=== PATIENT | male | born 1975 | race Caucasian/White ===

== ENCOUNTER 2017-09-08 02:18 | Emergency (ER) | payer OTHER ==
[~2017-09-08] VITALS: Ht 170.2 cm; Wt 93.2 kg
[~2017-09-08 02:18] MED LIST: ATIVAN0.5 MG PO; COGENTIN1 MG PO; COMBIVENT INH14.7 GM IH; CORRECTIVE LAXAT5 M1 PR; DEPAKOTE500 MG PO; ESKALITH300 M1 PO; FLONASE16 G1 BOTH NARES; GEODON40 MG PO; MUCUS RELIEF600 MG PO; NAPROSYN500 MG PO; TRAZODONE HCL50 MG PO; ZITHROMAX250 MG PO; ZOFRAN ODT4 MG PO; ZYPREXA
[2017-09-08 02:53] LABS: HEMATOCRIT 39.8 % (38.0-50.0); HEMOGLOBIN 12.8 G/DL (12.5-16.6); MCH 32.2 PG (29.0-34.0); MCHC 32.2 G/DL (30.0-36.0); MCV 100.3 FL (86-99); PLATELET COUNT 179 K/uL (156-360); RBC DIS.WIDTH-CV 12.9 % (11.8-14.6); RBC DIS.WIDTH-SD 48.4 % (39-53); RED BLOOD COUNT 3.97 M/uL (4.00-5.50); WHITE BLOOD COUNT 9.7 K/uL (4.1-10.2)
[2017-09-08 03:02] LABS: ALBUMIN 4.5 g/dL (3.2-4.8); CHLORIDE 110 mEq/L (99-109); POTASSIUM 3.9 mEq/L (3.7-5.4); SODIUM 143 mEq/L (136-147)
[2017-09-08 03:05] LABS: GLUCOSE 111 mg/dL (70-99); TOTAL PROTEIN 6.4 g/dL (6.4-8.3)
[2017-09-08 03:07] LABS: TOTAL BILIRUBIN 0.4 mg/dL (0.0-1.0)
[2017-09-08 03:08] LABS: ALKALINE PHOSPHATASE 55 IU/L (3-129); SERUM ETHYL ALCOHOL 277 mg/dL
[2017-09-08 03:09] LABS: CREATININE 1.1 mg/dL (0.6-1.3); GFR ESTIMATE (CALCULATED) > 59 mL/min/ (58.99-99999)
[2017-09-08 03:10] LABS: AST (GOT) 16 IU/L (2-34); UREA NITROGEN (BUN) 14 mg/dL (9-23)
[2017-09-08 03:11] LABS: ALT (GPT) 17 IU/L (3-49)
[2017-09-08 03:45] LABS: AMPHETAMINE NEGATIVE (500 ng/mL); BARBITURATES NEGATIVE (200 ng/mL); BENZODIAZEPINES NEGATIVE (150 ng/mL); BUPRENORPHINE NEGATIVE (10 ng/mL); COCAINE NEGATIVE (150 ng/mL); METHADONE NEGATIVE (200 ng/mL); METHAMPHETAMINE NEGATIVE (500 ng/mL); OPIATES (MORPHINE) NEGATIVE (100 ng/mL); OXYCODONE NEGATIVE (100 ng/mL); PHENCYCLIDINE NEGATIVE (25 ng/mL); PROPOXYPHENE NEGATIVE (300 ng/mL); THC CANNABINOIDS NEGATIVE (50 ng/mL); TRICYCLIC ANTIDEPRESSANTS NEGATIVE (300 ng/mL)
[2017-09-08 06:38] VITALS: BP 118/64
== END 2017-09-08 06:39 | disposition home or self-care (01) ==
LOC: EME → EDBD 02:18 → EME 02:18
PROVIDERS: Emergency Medicine
DX: F10.129 Alcohol abuse with intoxication, unspecified (principal); Y90.8 Blood alcohol level of 240 mg/100 ml or more; F17.200 Nicotine dependence, unspecified, uncomplicated
CPT/HCPCS: 80053; 85027; 99281; 99283; G0480